=== PATIENT | female | born 1995 | race African-American/Black ===

== ENCOUNTER 2017-07-21 19:23 | Emergency (ER) | payer OTHER, BC ==
[2017-07-21] MEDS ORDERED: IBUPROFEN 800 MG TABLET PO ONE (20:18)
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
[2017-07-21 21:30] VITALS: BP 145/115
== END 2017-07-21 22:03 | disposition home or self-care (01) ==
LOC: ER 19:23
DX: S16.1XXA Strain of muscle, fascia and tendon at neck level, initial encounter (principal); S20.211A Contusion of right front wall of thorax, initial encounter; V49.40XA Driver injured in collision with unspecified motor vehicles in traffic accident, initial encounter; M54.2 Cervicalgia; R07.89 Other chest pain; J45.909 Unspecified asthma, uncomplicated
CPT/HCPCS: 71020; 99284